=== PATIENT | male | born 1975 | race Caucasian/White ===

== ENCOUNTER 2021-02-17 07:46 | Emergency (ER) | payer OTHER ==
[~2021-02-17] VITALS: Ht 188 cm; Wt 103.5 kg
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
[2021-02-17 07:58] VITALS: BP 196/96
[2021-02-17] MEDS ORDERED: ACETAMINOPHEN 500 MG TABLET PO ONE (08:45)
[2021-02-17] MEDS ORDERED: BACITRACIN ZINC TOPICAL OINT PACKET. TP ONE (09:00)
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
[2021-02-17] MEDS ORDERED: ORPHENADRINE CITRATE 60 MG/2 ML VIAL. IM ONE (10:15)
== END 2021-02-17 10:38 | disposition home or self-care (01) ==
LOC: ER 07:46
DX: S60.511A Abrasion of right hand, initial encounter (principal); S70.311A Abrasion, right thigh, initial encounter; V13.4XXA Pedal cycle driver injured in collision with car, pick-up truck or van in traffic accident, initial encounter; Y93.89 Activity, other specified; Y92.89 Other specified places as the place of occurrence of the external cause; Y99.8 Other external cause status
CPT/HCPCS: 73130; 73610; 96372; 99284; J2360